=== PATIENT | male | born 1965 | race Caucasian/White ===

== ENCOUNTER → 2017-09-25 | Outpatient (CLI) | payer BC ==
[~2017-09-25] MED LIST: CHOLTAB3 PO; OMEG10007 PO
[2017-09-25 17:15] LABS: THYROID STIMULATING HORMONE < 0.005 uIu/ml (0.300-4.500)
== END | disposition home or self-care (01) ==
LOC: C.LABBC 12:59
PROVIDERS: ATTEND Internal Medicine Endocrinology, Diabetes & Metabolism
DX: E03.9 Hypothyroidism, unspecified (principal)

== ENCOUNTER → 2017-12-11 | Outpatient (CLI) | payer OTHER | END | disposition home or self-care (01) | LOC: C.LABBC 09:41 | PROVIDERS: ATTEND Internal Medicine Endocrinology, Diabetes & Metabolism | DX: E03.9 Hypothyroidism, unspecified (principal) ==

== ENCOUNTER → 2018-06-12 | Outpatient (CLI) | payer OTHER | END | disposition home or self-care (01) | LOC: C.LABBC 08:03 | PROVIDERS: ATTEND Internal Medicine Endocrinology, Diabetes & Metabolism | DX: E78.5 Hyperlipidemia, unspecified (principal); E03.9 Hypothyroidism, unspecified ==

== ENCOUNTER 2023-09-25 15:50 | Inpatient (IN) ==
[2023-09-25] MEDS ORDERED: LIDOCAINE/EPINEPH/TETRACAINE 1 EA SYR EXT ONE (16:19)
--- NOTE | 2023-09-25 16:20 | ED Triage Note ---
Date of Service September 25, 2023 History of Present Illness This patient was briefly evaluated while in triage. An abbreviated physical exam was performed. This patient is a 58-year-old Male who presents to the ED for evaluation of cheek 1 hour prior to arrival. The patient was using a table saw the wood that he was cutting kicked back, hitting him in the face. Patient reports mild right facial discomfort as well. Tetanus immunization is up-to-date. The patient rates his discomfort a 4 out of 10. Physical Exam CONSTITUTIONAL: Healthy and well nourished. Alert and oriented X 3. HEENT: Examination of the right cheek shows a vertically oriented 4 cm laceration with mild bleeding. Patient also has tenderness to palpation of the right maxillary region. No subconjunctival hemorrhage or epistaxis. NECK: Full active range of motion without discomfort. INTEGUMENTARY: No rash or other significant dermatologic conditions noted. HEMATOLOGIC: No ecchymosis or petechiae. PSYCHIATRIC: Positive affect. NEUROLOGIC: Facial sensations are intact. Initial orders for labs and / or imaging were placed and patient was placed in the waiting area until a bed is available. Please see further documentation for the full ED course.
[2023-09-25] MEDS ORDERED: LIDOCAINE/EPINEPH/TETRACAINE 1 EA SYR EXT STA (16:21)
--- NOTE | 2023-09-25 17:56 | CT Scan Report ---
CT facial bones wo con CLINICAL HISTORY: 58 years-old Male presenting with R facial ihnjury. The right-sided facial pain sta [facility] post trauma COMPARISON STUDY: 07/16/2009 TECHNIQUE: High-resolution CT scan of the facial bones is performed. Images are reviewed in the axia l, sagittal, and coronal planes. IV contrast was not administered for this examination. A dose lower ing technique was utilized adhering to the principles of ALARA. FINDINGS: The imaged intracranial structures demonstrate no acute abnormality. Unremarkable orbits. Moderate-si zed right cheek and infraorbital contusions with right cheek deep laceration extending through the an terior maxillary bony cortex. Multilevel degenerative changes of the cervical spine. The mandible baltazar ears intact. There is a right orbital floor fracture demonstrating a few millimeters of inferior disp lacement. No extraocular muscle entrapment. Acute nondisplaced fracture of the right zygomatic arch a nteriorly. Comminuted displaced and angulated right anterior and posterior maxillary wall fractures w ith a large amount of hemorrhage in the right maxillary sinus antrum. Additional comminuted mildly di splaced fractures of the right lateral orbital wall. Nasal bone is intact. Mild sigmoidal bowing and spurring of the nasal septum. The pterygoid plates are intact. Polypoid mucosal thickening of the rig ht sphenoid sinus. IMPRESSION: 1. Acute, comminuted, angulated and displaced right maxillary and orbital wall fractures with acute n ondisplaced right zygomatic arch fracture (zygomaticomaxillary complex fractures). 2. Right facial contusions with laceration. 3. Intact pterygoid bones. ACT 112: Negative or not required by law. The above report was generated using voice recognition software. It may contain grammatical, syntax o r spelling errors. Electronically signed by: Modesto Barnett M.D. 09/25/2023 5:54 PM
--- NOTE | 2023-09-25 18:13 | Emergency Department Note ---
History of Present Illness General Chief complaint: Laceration/Cut (Non-Suture) Stated complaint: LAC ON CHEEK, POSSIBLE BREAK Time Seen by Provider: 09/25/23 17:31 History of Present Illness Maximum Pain Intensity: 4 NAME: WEI PLUMMER AGE: 58 SEX: M : 1965 ARRIVES VIA: Walk-In INFORMANT: Patient ED PROVIDER(S): NICK Montiel, Dianna Neri MD The patient is a 58-year-old male who arrives to the emergency department for evaluation of a laceration to his right cheek. The patient was working on a table saw with a piece of wood when the wood kicked back and hit him in the face. The patient has a 2.5 cm laceration to upper central right cheek. Bleeding is currently controlled at this time. The patient was initially evaluated in triage with a CT scan ordered, CT scan shows orbital floor/maxillary/zygomatic arch fracture. After initial examination of the patient Dr. Solis was contacted for consult. Home Medications Medication Instructions Recorded Confirmed Type sertraline 100 mg tablet 100 mg PO DAILY 07/17/19 09/25/23 History atorvastatin 10 mg tablet 10 mg PO DAILY 09/25/23 09/25/23 History levothyroxine 100 mcg tablet 100 mcg PO DAILYBB 09/25/23 09/25/23 History multivitamin 1 tab PO DAILY 09/25/23 09/25/23 History Allergies Allergy/AdvReac Type Severity Reaction Status Date / Time No Known Allergies Allergy Verified 09/25/23 18:46 Past Med/Surg History Social History Smoking Status: Never smoker Do You Dip or Chew Tobacco: No; Hx Alcohol Use: Yes Hx Substance Use: No Preferred Language: Spanish Communication Ability: Effective Instrumentation Technologist Required: No Beliefs That Will Affect Care: None Current Living Situation: Spouse Feels Safe at Home: Yes Safety Concerns: Feels Safe At This Time Assistive Devices: Glasses Physical Exam Vital Signs Vital Signs - 24 hr 09/25/23 16:18 09/25/23 19:42 09/25/23 20:50 Temperature 36.7 C Temperature Source Temporal Artery Scan Pulse Rate 77 Pulse Rate [Right Finger] 67 110 H Pulse Rhythm [Right Finger] Regular Pulse Strength [Right Finger] Normal Respiratory Rate 18 17 20 Respiratory Effort / Characteristics Non-Labored Spontaneous Non-Labored Spontaneous Respiratory Depth Normal Normal Respiratory Pattern Regular Blood Pressure 162/96 H Blood Pressure [Right Arm] 146/86 H 139/98 Blood Pressure Mean 118 Blood Pressure Mean [Right Arm] 106 111 Blood Pressure Position Sitting Pulse Oximetry 100 96 95 Oxygen Delivery Method Room Air Room Air Room Air Sepsis Recent Fever Within 48 Hours No Sepsis New/Unexplained Change in Mental Status N/A Sepsis Action Taken by Nursing No Action Required 09/25/23 21:58 Temperature Temperature Source Pulse Rate Pulse Rate [Right Finger] 88 Pulse Rhythm [Right Finger] Pulse Strength [Right Finger] Respiratory Rate 20 Respiratory Effort / Characteristics Respiratory Depth Respiratory Pattern Blood Pressure Blood Pressure [Right Arm] 149/85 H Blood Pressure Mean Blood Pressure Mean [Right Arm] 106 Blood Pressure Position Pulse Oximetry 98 Oxygen Delivery Method Room Air Sepsis Recent Fever Within 48 Hours Sepsis New/Unexplained Change in Mental Status Sepsis Action Taken by Nursing General: Awake, alert and oriented. No acute distress. Well developed, hydrated and nourished. Appears stated age. Skin: There is a 2.5 cm vertical laceration to the right cheek, it is not through and through. Bleeding is currently controlled. There is no visible foreign body. Head: The head is normocephalic and atraumatic without tenderness, visible or palpable masses, depressions, or scarring. Ears: The external ear and ear canal are non-tender and without swelling. The canal is clear without discharge. The tympanic membrane is normal in appearance with normal landmarks and cone of light. Hearing is intact with good acuity to whispered voice. Nose: There is blood in the bilateral naris. The nasal septum is midline. Nares are patent bilaterally. Throat: Oral mucosa is pink and moist with good dentition. Tongue normal in appearance without lesions and with good symmetrical movement. No buccal nodules or lesions are noted. The pharynx is normal in appearance without tonsillar swelling or exudates. Neck: The neck is supple without adenopathy. Trachea is midline. Thyroid gland is normal without masses. Carotid pulse 2+ bilaterally without bruit. No JVD. Cardiac: The external chest is normal in appearance without lifts, heaves, or thrills. PMI is not visible and is palpated in the 5th intercostal space at the midclavicular line. Heart rate and rhythm are normal. No murmurs, gallops, or rubs are auscultated. S1 and S2 are heard and are of normal intensity. Respiratory: The chest wall is symmetric and without deformity. No signs of trauma. Chest wall is non-tender. No signs of respiratory distress. Lung sounds are clear in all lobes bilaterally without rales, rhonchi, or wheezes. Resonance is normal upon percussion of all lung doe. Extremities: Upper and lower extremities are atraumatic in appearance without tenderness or deformity. No swelling or erythema. Full range of motion is noted to all joints. Muscle strength is 5/5 bilaterally. Tendon function is normal. Capillary refill is less than 3 seconds in all extremities. Pulses palpable. Steady gait noted. Neurological: The patient is awake, alert and oriented to person, place, and time with normal speech. Motor function is normal with muscle strength 5/5 bilaterally to upper and lower extremities. Sensation is intact bilaterally. Reflexes 2+ bilaterally. Cranial nerves are intact. Cerebellar function is intact. Memory is normal and thought process is intact. No gait abnormalities are appreciated. Psychiatric: Appropriate mood and affect. Good judgement and insight. No visual or auditory hallucinations. No suicidal or homicidal ideation. Procedures Laceration Laceration 1: Site: face Size (cm): 2.5 Description: linear and clean Depth: simple, single layer Local Anesthetic: lidocaine 1% Amount of anesthesia used (mL): 5 Pre-repair: wound explored, irrigated extensively, extensive debridement and wound margins revised Skin layer closed with: nylon Size (cm): 6-0 Number of sutures: 4 Technique: simple, interrupted Course Administered Medications Ampicillin Sodium/Sulbactam Sodium 3,000 mg/ Sodium Chloride 100 mls @ 100 mls/hr IV Q6H [facility] Stop: 10/06/23 01:59 Last Admin: 09/26/23 08:56 Dose: 100 mls/hr Documented By: Infusion: 09/26/23 02:35 Dose: Infused Documented By: Admin: 09/26/23 01:34 Dose: 100 mls/hr Documented By: TREVIN Acetaminophen (Ofirmev) 1,000 mg in 100 mls @ 400 mls/hr IV Q8H PRN PRN Reason: pain(1-4) or fever Stop: 09/28/23 21:19 Last Infusion: 09/26/23 08:56 Dose: Infused Documented By: Admin: 09/26/23 08:19 Dose: 400 mls/hr Documented By: BRADFORD Morphine Sulfate (Morphine Sulfate 2 Mg/Ml Carp) 2 mg IV Q3H PRN PRN Reason: Pain(5+) Stop: 10/09/23 21:19 Last Admin: 09/25/23 23:20 Dose: 2 mg Documented By: TREVIN Discontinued Medications Ampicillin Sodium/Sulbactam Sodium 3,000 mg/ Sodium Chloride 100 mls @ 200 mls/hr IV NOW STA Stop: 09/25/23 19:02 Last Infusion: 09/25/23 20:32 Dose: Infused Documented By: Admin: 09/25/23 19:53 Dose: 200 mls/hr Documented By: ELI Lactated Ringer's (Lr) 1,000 mls @ 100 mls/hr IV .Q10H ANGI Stop: 09/26/23 07:29 Last Infusion: 09/26/23 08:17 Dose: Infused Documented By: Admin: 09/25/23 21:48 Dose: 100 mls/hr Documented By: BRIA Lidocaine (Lidocaine/Epineph/Tetracaine 1 Ea Syr) Confirm Administered Dose 1 each EXT .STK-MED ONE Stop: 09/25/23 16:20 Last Admin: 09/25/23 16:22 Dose: Not Given Documented By: ALDAIR Lidocaine (Lidocaine/Epineph/Tetracaine 1 Ea Syr) 1 each EXT NOW STA Stop: 09/25/23 16:22 Last Admin: 09/25/23 16:22 Dose: 1 each Documented By: ALDAIR Lidocaine HCl (Xylocaine 1%/Sod Bicarb 20 Ml Vial) 20 ml INFIL NOW ONE Stop: 09/25/23 18:34 Last Admin: 09/25/23 20:05 Dose: 20 ml Documented By: BRIA Morphine Sulfate (Morphine Sulfate 4 Mg/Ml 1 Ml Carp\Vial) 4 mg IV NOW STA Stop: 09/25/23 18:55 Last Admin: 09/25/23 19:50 Dose: 4 mg Documented By: ELI Ondansetron HCl (Ondansetron Inj 2 Mg/Ml 2 Ml Vial) 4 mg IV NOW STA Stop: 09/25/23 18:55 Last Admin: 09/25/23 19:50 Dose: 4 mg Documented By: AMS Medical Decision Making Differential Diagnosis Foreign body, fracture, infection, soft tissue injury, tendon injury, vascular compromise, compartment syndrome, as well as other pathologies. Medical Records Attestation: I reviewed the patient's medical records. Home Medications Current Medication List: was personally reviewed by me Laboratory Data Attestation: I reviewed the patient's lab results. 09/26/23 07:02 09/26/23 07:02 Lab Results 09/25/23 Range/Units 19:20 WBC 10.50 (4.8-10.8) K/ul RBC 5.00 (4.70-6.10) M/uL Hgb 15.0 (14.0-18.0) g/dl Hct 42.9 (42.0-52.0) % MCV 85.8 (80.0-100.0) fL MCH 30.0 (25.0-34.0) pg MCHC 35.0 (32.0-36.0) g/dL RDW Std Deviation 38.9 (36.4-46.3) fL RDW Coeff of Deepak 12.5 (11.5-14.5) % Plt Count 173 (130-400) K/uL MPV 10.0 (9.4-12.4) fL Immature Gran % (Auto) 0.4 % Neut % (Auto) 84.4 % Lymph % (Auto) 9.7 % [place] % (Auto) 5.0 % Eos % (Auto) 0.2 % Baso % (Auto) 0.3 % Neut # (Auto) 8.86 H (1.40-6.50) K/uL Lymph # (Auto) 1.02 L (1.20-3.40) K/uL [place] # (Auto) 0.53 (0.11-0.59) K/uL Eos # (Auto) 0.02 (0.00-0.50) K/uL Baso # (Auto) 0.03 (0.00-0.20) K/uL Immature Gran # (Auto) 0.04 (0.01-0.20) K/uL Sodium 140 (136-145) mmol/L Potassium 3.8 (3.5-5.1) mmol/L Chloride 106 (98-107) mmol/L Carbon Dioxide 26 (21-32) mmol/L Anion Gap 8 (3-11) BUN 25 H (6-23) mg/dl Creatinine 1.10 (0.6-1.4) mg/dl Est Cr Clr Drug Dosing 79.6 ml/min Est GFR ( Amer) 86.5 ml/min Est GFR (Non-Af Amer) 74.6 ml/min BUN/Creatinine Ratio 22.7 H (10-20) Glucose 121 H (70-99(Fasting)) mg/dl Calcium 9.6 (8.6-10.3) mg/dl Total Bilirubin 0.4 (0.2-1.0) mg/dl AST 28 (13-39) U/L ALT 22 (7-52) U/L Alkaline Phosphatase 57 (34-104) U/L Total Protein 6.8 (6.0-8.3) gm/dl Albumin 4.5 (3.4-5.0) gm/dl Globulin 2.3 L (2.5-4.0) gm/dl Albumin/Globulin Ratio 2.0 (0.9-2) Imaging Data Radiologist's Impression: Chest X-Ray 09/25/23 18:44 XR chest 1V portable HISTORY: 58 years-old Male preoperative preoperative exam. COMPARISON: None TECHNIQUE: AP view of the chest FINDINGS: Cardiomediastinal and hilar silhouettes are within normal limits. No pneumothorax, pleural effusion or airspace consolidation. Bones appear grossly intact with degenerative changes of the shoulders and spine. IMPRESSION: No acute process. ACT 112: Negative or not required by law. The above report was generated using voice recognition software. It may contain grammatical, syntax or spelling errors. Electronically signed by: Modesto Barnett M.D. 09/26/2023 7:28 AM Blood Pressure Blood Pressure Findings: Elevated blood pressure Blood Pressure Disposition: elevated BP felt to be situational Head Trauma GCS Score: 15 MDM Narrative The patient is a 58-year-old male who arrives to the emergency department for the above-stated complaint. Upon assessment the patient has a 2.5 cm vertical laceration to the anterior right cheek. The patient reports he was using a table saw with a piece of wood and the wood kicked back and hit him in the face. The patient is reporting severe pain and tenderness in his cheek with bleeding from his nares. He on the patient's cheek does not extend into the internal portion of the mouth. Dentition is intact. Imaging shows a zygomatic arch fracture, orbital wall fracture, and maxillary fracture. Dr. Solis was contacted for consult, he states based on the patient's condition he will require surgical intervention. The patient was provided the option to be admitted for pain control with surgery tomorrow morning, or to go home and follow-up with Dr. Solis tomorrow morning in his office. The patient and his opted for admission with surgical intervention tomorrow. Dr. Solis was informed and agreed with the plan. The admitting team was contacted who requested additional imaging of the patient's head. CT imaging of the head was negative with the exception of the previously known injury. The patient was admitted to [facility] at this time. The patient's laceration was irrigated extensively, no foreign body was noted in the wound. Dr. Solis's recommendation, the wound was sutured to control bleeding, without correction of deep structures. Dr. Solis's plan was to use this laceration as a vertical opening for his procedure. See procedure note. Impression & Plan Maxillary fracture, right side, initial encounter for closed fracture, Orbital wall fracture, Zygomatic fracture, right side, initial encounter for open fracture, Complex laceration of face Discharge Plan Visit Data Chief Complaint: Laceration/Cut (Non-Suture) Stated Complaint: LAC ON CHEEK, POSSIBLE BREAK ED Provider: Dianna Neri ED Midlevel Provider: Deepa Ingram Discharge Problem: Maxillary fracture, right side, initial encounter for closed fracture, Orbital wall fracture, Zygomatic fracture, right side, initial encounter for open fracture, Complex laceration of face Patient Disposition: Admitted As Inpatient Discharge Instructions Interventions: ED Discharge Assessment Last Done: 09/25/23 22:44 Discharge Problem: Complex laceration of face Qualifiers: Encounter type: initial encounter Qualified Code(s): S01.91XA - Laceration without foreign body of unspecified part of head, initial encounter
[2023-09-25] MEDS ORDERED: XYLOCAINE 1%/SOD BICARB 20 ML VIAL INFIL ONE (18:33)
[2023-09-25] MEDS ORDERED: AMPICILLIN/SULBACTAM SOD 3,000 MG in SODIUM CHLOR 0.9% MINI-B 100 ML IV STA (18:33)
[2023-09-25] MEDS ORDERED: MoRPHine SULFATE 4 MG/ML 1 ML CARP\\VIAL IV STA (18:54)
[2023-09-25] MEDS ORDERED: ONDANSETRON INJ 2 MG/ML 2 ML VIAL IV STA (18:54)
[2023-09-25 19:40] LABS: Basophils # (auto) 0.03 K/uL (0.00-0.20); Basophils % (auto) 0.3 %; Eosinophils # (auto) 0.02 K/uL (0.00-0.50); Eosinophils % (auto) 0.2 %; Hematocrit (blood only) 42.9 % (42.0-52.0); Immature Granulocytes # (auto) 0.04 K/uL (0.01-0.20); Immature Granulocytes % (auto) 0.4 %; Lymphocytes # (auto) 1.02 K/uL (1.20-3.40); Lymphocytes % (auto) 9.7 %; Mean Corpuscular Volume 85.8 fL (80.0-100.0); Monocytes # (auto) 0.53 K/uL (0.11-0.59); Neutrophils # (auto) 8.86 K/uL (1.40-6.50); Neutrophils % (auto) 84.4 %; Platelet Count 173 K/uL (130-400); RDW Coefficient of Variation 12.5 % (11.5-14.5); RDW Standard Deviation 38.9 fL (36.4-46.3)
[2023-09-25 19:52] LABS: Albumin Level 4.5 gm/dl (3.4-5.0); BUN Creatinine Ratio 22.7 (10-20); Bilirubin,Total 0.4 mg/dl (0.2-1.0); Calcium 9.6 mg/dl (8.6-10.3); Creatinine Clr Calc Pharmacy 79.6 ml/min; Est GFR (African American) 86.5 ml/min; Est GFR (Non-African American) 74.6 ml/min; Globulin 2.3 gm/dl (2.5-4.0); Potassium 3.8 mmol/L (3.5-5.1); Total Protein 6.8 gm/dl (6.0-8.3)
--- NOTE | 2023-09-25 20:04 | CT Scan Report ---
Exam(s): CT HEAD Without Contrast EXAM: CT Head Without Intravenous Contrast CLINICAL HISTORY: Reason for exam: traumatic facial injury. TECHNIQUE: Axial computed tomography images of the head/brain without intravenous contrast. CTDI is 35.99 mGy and DLP is 625.8 mGy-cm. Automated exposure control was utilized for the study. A dose lowering technique was utilized adhering to the principles of ALARA. COMPARISON: No relevant prior studies available. FINDINGS: No acute intracranial hemorrhage. No midline shift or mass effect. The territorial mclaughlin-white matter differentiation is maintained throughout. Age-related cerebral volume loss. Periventricular and subcortical white matter hypoattenuation, consistent with chronic microangiopathy. The visualized orbits appear grossly unremarkable. The calvarium is intact. RIGHT maxillary sinus fracture, correlate with maxillofacial CT scan. The visualized paranasal sinuses and mastoid air cells are grossly clear. IMPRESSION: No acute intracranial hemorrhage, midline shift, or mass effect. RIGHT maxillary sinus fracture, correlate with maxillofacial CT scan. Electronically signed by: Silviano Mercado MD 09/25/23 20:03 PM
--- NOTE | 2023-09-25 21:10 | History & Physical Report ---
Date of Service September 25, 2023 Assessment & Plan (1) Maxillary fracture, right side, initial encounter for closed fracture: Plan: -Admit to med/surge -Currently stable with pain controlled -Experienced his injury earlier today while cutting a piece of wood -Patient is currently without neurologic symptoms, airway swellinrig/stridor, or acute bleeding -Facial CT shows the acute fractures of the right maxillary and right orbital wall -CT of the head negative for acute trauma -Dr. Solis will take the patient to the OR tomorrow for repair -S/P one dose of Unasyn in the ED, will continue with Unasyn for now -Will obtain MRSA swab, if positive will escalate abx to cover -Will allow him a clear liquid diet until midnight then NPO -Pain control with tylenol and morphine -BL MIRNA's for DVT PPX -AM CBC, CMP, Mag, PT/INR (2) Orbital wall fracture: Plan: -See maxillary fracture -No changes in vision or eye trauma (3) Hypothyroidism: Plan: -Continue levothyroxine (4) Dyslipidemia: Plan: -Continue statin Plan The patient was discussed with Dr. Neri at the time of the exam History of Present Illness Chief Complaint: Facial trauma Primary Care Provider: Hamilton Bray is a 58 year old male with a PMH significant for hypothyroidism, hyperlipidemia, and anxiety who presented to the [facility] ED after sustaining a laceration to the face while using a table saw earlier today. Per the ED, the patient was cutting a piece of wood on the table saw when the piece of wood was kiced back hitting him on the right cheek. He remained stable while in the ED. CT of the face wo con was read as 1. Acute, comminuted, angulated and displaced right maxillary and orbital wall fractures with acute nondisplaced right zygomatic arch fracture (zygomaticomaxillary complex fractures). 2. Right facial contusions with laceration. 3. Intact pterygoid bones.. CT of the head wo con was read as No acute intracranial hemorrhage, midline shift, or mass effect.". Labs including CBC and CMP were unremarkable. The ED staff spoke with Dr. Solis of ENT who was comfortable with the patient staying at our facility. He plans to take the patient to the OR tomorrow for surgical repair. Prior to admission the patient was given a dose of Unasyn, 4 mg IV morphine, 4 mg IV Zofran, and his wound was sutured. At the time of the exam the patient was sitting in bed in no acute distress with his sitting bedside. He states that he was cutting a piece of wood on his table saw when it was kicked backwards by the blade. The wood hit his right cheek. He was wearing safety glasses, which were broken during the event, but his eyes were spared. He states that he immediately had severe pain and bleeding at the injury site. Currently his pain is controlled. He denies loss of consciousness during the accident, paresthesia, changes in vising, hearing, trismus, airway/mouth swelling, difficulty swallowing, SOB, chest pain, abd pain, vomiting, dysuria, hematuria, melena, and other recent trauma. He uses nicotine but not tobacco and has not had alcohol since . Please refer to Dr. Neri's attestation for any changes to the treatment plan Allergies Allergy/AdvReac Type Severity Reaction Status Date / Time No Known Allergies Allergy Verified 09/25/23 18:46 Home Medications Medication Instructions Recorded Confirmed Type sertraline 100 mg tablet 100 mg PO DAILY 07/17/19 09/25/23 History atorvastatin 10 mg tablet 10 mg PO DAILY 09/25/23 09/25/23 History levothyroxine 100 mcg tablet 100 mcg PO DAILYBB 09/25/23 09/25/23 History multivitamin 1 tab PO DAILY 09/25/23 09/25/23 History Past Med/Surg History Social History Smoking Status: Never smoker Do You Dip or Chew Tobacco: No; Hx Alcohol Use: Yes Hx Substance Use: No Preferred Language: Korean Communication Ability: Effective Shellfish Grower Required: No Beliefs That Will Affect Care: None Current Living Situation: Spouse Feels Safe at Home: Yes Safety Concerns: Feels Safe At This Time Assistive Devices: Glasses Physical Exam Physical Exam: Physical Exam: General: In no acute distress, stated age, well-nourished, good hygiene HEENT: Patient with recent laceration sutured and without current bleeding, swelling of the right face without extension to the eye or neck, patient able to open mouth without difficulty, no swelling or drooling on inspection of the oropharynx, No scleral icterus, pupils around round, symmetrical, and reactive to light, moist mucus membranes, trachea midline, no thyromegaly Chest/Pulm: No respiratory distress, symmetrical chest expansion, clear breath sounds throughout Cardiac: RRR, no murmurs noted Abdomen: Negative for ascites and bruising, normoactive bowel sounds, soft, non-tender to palpation throughout Musculoskeletal: No other acute trauma on exam Extremities: Radial, dorsalis pedis, and posterior tibial pulses are intact and symmetrical, no edema noted in the BL LE's Skin: Warm, dry, no rashes , lesions, or scars noted Neuro: Alert and oriented to person, place, month, year, and president, no focal defects, CN II-XII tested and intact, finger to nose test negative, no tremors noted Psych: No acute distress, calm and cooperative during the exam Results & Data Results & Data Vital Signs (Past 12 Hours) Vital Signs Temp Pulse Pulse Resp BP BP Pulse Ox 09/25/23 20:50 110 H 20 139/98 95 09/25/23 19:42 67 17 146/86 H 96 09/25/23 16:18 36.7 C 77 18 162/96 H 100 O2 Del Method 09/25/23 20:50 Room Air 09/25/23 19:42 Room Air 09/25/23 16:18 Room Air Laboratory Results Abnormal lab results 09/25/23 Range/Units 19:20 Neut # (Auto) 8.86 H (1.40-6.50) K/uL Lymph # (Auto) 1.02 L (1.20-3.40) K/uL BUN 25 H (6-23) mg/dl BUN/Creatinine Ratio 22.7 H (10-20) Glucose 121 H (70-99(Fasting)) mg/dl Globulin 2.3 L (2.5-4.0) gm/dl Diagnostic Findings Face CT 09/25/23 16:21 CT facial bones wo con CLINICAL HISTORY: 58 years-old Male presenting with R facial ihnjury. The right- sided facial pain status post trauma COMPARISON STUDY: 07/16/2009 TECHNIQUE: High-resolution CT scan of the facial bones is performed. Images are reviewed in the axial, sagittal, and coronal planes. IV contrast was not administered for this examination. A dose lowering technique was utilized adhering to the principles of ALARA. FINDINGS: The imaged intracranial structures demonstrate no acute abnormality. Unremarkable orbits. Moderate-sized right cheek and infraorbital contusions with right cheek deep laceration extending through the anterior maxillary bony cortex. Multilevel degenerative changes of the cervical spine. The mandible appears intact. There is a right orbital floor fracture demonstrating a few millimeters of inferior displacement. No extraocular muscle entrapment. Acute nondisplaced fracture of the right zygomatic arch anteriorly. Comminuted displaced and angulated right anterior and posterior maxillary wall fractures with a large amount of hemorrhage in the right maxillary sinus antrum. Additional comminuted mildly displaced fractures of the right lateral orbital wall. Nasal bone is intact. Mild sigmoidal bowing and spurring of the nasal septum. The pterygoid plates are intact. Polypoid mucosal thickening of the right sphenoid sinus. IMPRESSION: 1. Acute, comminuted, angulated and displaced right maxillary and orbital wall fractures with acute nondisplaced right zygomatic arch fracture (zygomaticomaxillary complex fractures). 2. Right facial contusions with laceration. 3. Intact pterygoid bones. ACT 112: Negative or not required by law. The above report was generated using voice recognition software. It may contain grammatical, syntax or spelling errors. Electronically signed by: Modesto Barnett M.D. 09/25/2023 5:[address] 09/25/23 18:51 Exam(s): CT HEAD Without Contrast EXAM: CT Head Without Intravenous Contrast CLINICAL HISTORY: Reason for exam: traumatic facial injury. TECHNIQUE: Axial computed tomography images of the head/brain without intravenous contrast. CTDI is 35.99 mGy and DLP is 625.8 mGy-cm. Automated exposure control was utilized for the study. A dose lowering technique was utilized adhering to the principles of ALARA. COMPARISON: No relevant prior studies available. FINDINGS: No acute intracranial hemorrhage. No midline shift or mass effect. The territorial mclaughlin-white matter differentiation is maintained throughout. Age-related cerebral volume loss. Periventricular and subcortical white matter hypoattenuation, consistent with chronic microangiopathy. The visualized orbits appear grossly unremarkable. The calvarium is intact. RIGHT maxillary sinus fracture, correlate with maxillofacial CT scan. The visualized paranasal sinuses and mastoid air cells are grossly clear. IMPRESSION: No acute intracranial hemorrhage, midline shift, or mass effect. RIGHT maxillary sinus fracture, correlate with maxillofacial CT scan. Electronically signed by: Silviano Mercado MD 09/25/23 20:03 PM ECG Additional Comments: Normal sinus rhythm Cannot rule out Anterior infarct , age undetermined Abnormal ECG When compared with ECG of 03-MAR-2014 10:28, No significant change was found Code Status & VTE Plan Code Status Full code VTE Prophylaxis Plan VTE Prophylaxis will be ordered: Yes Supervising Physician Co-Signing Physician Notes Patient seen and examined, chart reviewed, case discussed with JOSTIN Montgomery and I agree with the assessment and plan as above PG Care Time/CCT Total # of Minutes Spent Total Time Spent with Patient: Total time spent is greater than 50% in coordination of care (as documented) at patient's floor/unit and/or counseling patient: Coding [place] [address] INT INP/OBS CARE 2/55MIN Patient Type Established Medical Decision Making Moderate Complexity Diagnoses Maxillary fracture, right side, initial encounter for closed fracture S02.40CA Orbital wall fracture S02.85XA Hypothyroidism E03.9 Dyslipidemia E78.5
[2023-09-25] MEDS ORDERED: ONDANSETRON INJ 2 MG/ML 2 ML VIAL IV PRN (21:28)
[2023-09-25] MEDS ORDERED: LACTATED RINGER'S 1,000 ML IV SCH (21:30)
--- NOTE | 2023-09-25 21:35 | Oral/Maxillofacial Consult ---
Date of Consultation September 25, 2023 Assessment & Plan (1) Zygomatic fracture, right side, initial encounter for open fracture: (2) Complex laceration of face: History of Present Illness History of Present Illness I was asked to evaluate this 58-year-old male who arrived to the emergency department for evaluation of a laceration to his right cheek. The patient was working on a table saw with a piece of wood when the wood kicked back and hit him in the face. There is a 2.5 deep laceration of the right check. I had a 3-D rendering of the CT made to allow me to review the fraction in 3-D. As expected the right ZMOC has impacted into the lateral sinus causing comminution of the lateral sinus villagran. It appears that the right ZMOC pivoted from the ZF and arch to cause the buttress to impact into the sinus. This is causing a contour defect in the right ZMOC area requiring an opened reduction with plate fixation. I may be able to use the cheek laceration to help with the fixation of the complex fracture. I saw Mr. Sims Sunday AM to review the surgery, I also had his on the phone as well, I preformed a clinical exam, signed consents and will set him up for the opened reduction and laceration repair later in the afternoon. Treatment Plan: Plan for opened reduction and laceration repair right ZMOC fracture Set up with general anesthesia in hospital due to complexity of the procedure I reviewed the treatment plan and consent with the patient (and his over the phone) Understanding was expressed. Time was given for questions regarding the surgery, risks and post op care. Discussed alternative to treatment--procedure as planned, Do not do surgery Risks discussed: Bleeding,Pain,swelling,infection, delayed healing, nerve injury to face which could be permanent (rare). Sinus problems like fistula or infection. Need to leave a small bone fragment in sinus, sinus congestion. Facial couture asymmetry (rare) Home care reviewed: tooth brushing, rinsing, follow up care with Dr Solis. diet=[id number] dental. Discussed activity level, driving/work while on Rx pain Meds. ER notes: The patient is a 58-year-old male who arrives to the emergency department for evaluation of a laceration to his right cheek. The patient was working on a table saw with a piece of wood when the wood kicked back and hit him in the face. The patient has a 2.5 cm laceration to upper central right cheek. Bleeding is currently controlled at this time. The patient was initially evaluated in triage with a CT scan ordered, CT scan shows orbital floor/maxillary/zygomatic arch fracture. After initial examination of the patient Dr. Solis was contacted for consult. Face CT 09/25/23 16:21 CT facial bones wo con CLINICAL HISTORY: 58 years-old Male presenting with R facial injury. The right- sided facial pain status post trauma FINDINGS: The imaged intracranial structures demonstrate no acute abnormality. Unremarkable orbits. Moderate-sized right cheek and infraorbital contusions with right cheek deep laceration extending through the anterior maxillary bony cortex. Multilevel degenerative changes of the cervical spine. The mandible appears intact. There is a right orbital floor fracture demonstrating a few millimeters of inferior displacement. No extraocular muscle entrapment. Acute nondisplaced fracture of the right zygomatic arch anteriorly. Comminuted displaced and angulated right anterior and posterior maxillary wall fractures with a large amount of hemorrhage in the right maxillary sinus antrum. Additional comminuted mildly displaced fractures of the right lateral orbital wall. Nasal bone is intact. Mild sigmoidal bowing and spurring of the nasal septum. The pterygoid plates are intact. Polypoid mucosal thickening of the right sphenoid sinus. IMPRESSION: 1. Acute, comminuted, angulated and displaced right maxillary and orbital wall fractures with acute nondisplaced right zygomatic arch fracture (zygomaticomaxillary complex fractures). 2. Right facial contusions with laceration. 3. Intact pterygoid bones. Prescriptions sertraline 100 mg tablet 100 mg PO DAILY multivitamin Tablet 1 tab PO DAILY atorvastatin 10 mg tablet 10 mg PO DAILY levothyroxine 100 mcg tablet 100 mcg PO DAILYBB Rx Instructions: 100 mcg PO TAKE ON AN EMPTY STOMACH WITH A FULL GLASS OF WATER, WAIT 30 MINUTES TO EAT, DRINK, OR TAKE Allergies Allergy/AdvReac Type Severity Reaction Status Date / Time No Known Allergies Allergy Verified 09/25/23 18:46 Home Medications Medication Instructions Recorded Confirmed Type sertraline 100 mg tablet 100 mg PO DAILY 07/17/19 09/25/23 History atorvastatin 10 mg tablet 10 mg PO DAILY 09/25/23 09/25/23 History levothyroxine 100 mcg tablet 100 mcg PO DAILYBB 09/25/23 09/25/23 History multivitamin 1 tab PO DAILY 09/25/23 09/25/23 History Patient History Social History Smoking Status: Never smoker Do You Dip or Chew Tobacco: No; Hx Alcohol Use: Yes Hx Substance Use: No Preferred Language: Australian Communication Ability: Effective Crop Pest Control Specialist Required: No Beliefs That Will Affect Care: None Current Living Situation: Spouse Feels Safe at Home: Yes Safety Concerns: Feels Safe At This Time Assistive Devices: Glasses Physical Exam Physical Exam: Physical Exam Constitutional WD/WN, vitals as above Eyes PERRL, left conjunctivae normal, anicteric sclerae, right eye somewhat red, EOM all WNL, no vision issues Mouth no oral issues, noted paraesthesia upper right gum tissue secondary to nerve injury as expected Neck trachea midline, no thyromegaly Thyroid: normal thyroid Respiratory normal respiratory effort, lungs clear to auscultation Auscultation: lungs clear to auscultation bilaterally Cardiovascular RRR, no murmur, no edema Rate/Rhythm: regular rate and regular rhythm Gastrointestinal (Abdomen) normal bowel sounds, soft, nontender, no hepatosplenomegaly Musculoskeletal no cyanosis or clubbing, extremities motor strength 5/5 Skin swollen right cheek, deep laceration right cheek, depressing and step deformity right orbital rim Neurologic PERRL, EOMI, accommodation nl, no face palsy, no dysarthria Cranial Nerves: sense of smell intact, PERRL, normal accommodation, EOM intact bilaterally, normal facial strength, tongue midline, normal gag reflex, normal hearing, able to rotate head bilaterally, able to elevate shoulders bilaterally, no nystagmus and symmetric palate elevation Slight numbness from the infraorbital nerve right side Psychiatric A+Ox3, euthymic affect Orientation: cooperative Lymphatic no cervical or axillary lymphadenopathy Results & Data Vital Signs (Past 12 Hours) Vital Signs Temp Pulse Pulse Resp BP BP Pulse Ox 09/25/23 20:50 110 H 20 139/98 95 09/25/23 19:42 67 17 146/86 H 96 09/25/23 16:18 36.7 C 77 18 162/96 H 100 O2 Del Method 09/25/23 20:50 Room Air 09/25/23 19:42 Room Air 09/25/23 16:18 Room Air PG Care Time/CCT Total # of Minutes Spent Total Time Spent with Patient: Total time spent is greater than 50% in coordination of care (as documented) at patient's floor/unit and/or counseling patient: [place] [address] IN/OBS CONSULT LVL 3,45M Patient Type New History Problem Focused Exam Problem Focused Medical Decision Making Straight Forward Diagnoses Zygomatic fracture, right side, initial encounter for open fracture S02.40EB Complex laceration of face, initial encounter S01.91XA Encounter type: initial encounter CPT Codes COMPLEX REPAIR FH/CHK/CHN/M/NCK/AX/GEN/HAND/FEET 2.6-7.5 CM - [id number] ([id number]) OPEN TX COMPLX MALAR FX - [id number] ([id number]) (2) Complex laceration of face Encounter type: initial encounter Qualified Code(s): S01.91XA - Laceration without foreign body of unspecified part of head, initial encounter
[2023-09-25] MEDS: MoRPHine SULFATE 2 MG/ML CARP IV PRN (23:20)
[2023-09-26] MEDS: AMPICILLIN/SULBACTAM SOD 3,000 MG in SODIUM CHLOR 0.9% MINI-B 100 ML IV SCH ×3 (01:34→20:20)
--- OUTSIDE RECORDS SUMMARY | 2023-09-26 01:40 | External Medical Summary | Continuity of Care Document ---
Author Name Unknown Organization [facility] [address] [facility] [address] [id number] Care Team Providers Care Load Tester Name Role Phone Hamilton Bob Primary Care Physician [phone] Encounter [facility] [id number] Date(s): 06/21/23 - 06/21/23 [facility] 0 [address] [facility] 207 [facility] Site [address] [facility] 207 [place], [place] [address]Hzekq [phone] Encounter Diagnosis Hypothyroidism(Discharge Diagnosis) - 06/21/23 Hyperlipemia(Discharge Diagnosis) - 06/21/23 Seasonal affective disorder(Discharge Diagnosis) - 06/21/23 Discharge Disposition: Home or Self Care Attending Physician: MD Alessandra, Mayda Kohler Allergies, Adverse Reactions, Alerts Substance Reaction Severity Status Wellbutrin Insomnia. Active Astelin Insomnia. Active Lexapro Insomnia. Active Richard's wort Insomnia. Active Assessment and Plan Extracted from: Title:Office Visit Note Author:DO Gomez Pa ige M Date:06/21/23 1.Hypothyroidism Chronic condition, stable Goal:Resolution Data:unique tests ordered: _TSH, Free T4 Plan: Will recheck blood work as above, adjust levothyroxine dosage as needed. 2.Hyperlipemia Chronic condition, stable Goal:Resolution Data:unique tests ordered: _Lipid profile Plan: Will recheck fasting lipid panel. Adjust statin as indicated. 3.Seasonal affective disorder Chronic condition, stable Goal:Resolution Data:PHQ-2 of 0 Plan: Continue current dose of Sertraline Immunizations Given and Recorded Vaccine Date Status Refusal Reason hepatitis B adult vaccine 05/25/22 Given SARS-CoV-2 (COVID-19) mRNA BNT-162b2 vax 09/05/21 Recorded influenza virus vaccine, inactivated 08/20/21 Give n influenza virus vaccine, inactivated 08/18/20 Give n influenza virus vaccine, inactivated 07/24/17 Give n influenza virus vaccine, inactivated 07/21/14 Give n influenza virus vaccine, inactivated 07/15/13 Give n influenza virus vaccine, inactivated 07/23/12 Give n zoster vaccine, inactivated 05/23/21 Given zoster vaccine, inactivated 11/22/20 Given tetanus/diphtheria/pertuss, acel (Tdap) 11/22/20 G iven tetanus/diphtheria/pertuss, acel (Tdap) 10/05/05 R ecorded influenza virus vaccine, H1N1 07/29/11 Recorded Medications atorvastatin 10 mg oral tablet Start: 12/10/22 17:55:00 EST, See Instructions, Disp# 30 tab, Refills: 11, TAKE 1 TABLET BY MOUTH EVERY DAY, Pharmacy: [email or web address] Start Date: 12/10/22 Status: Ordered famotidine 20 mg oral tablet Start: 12/07/22 13:57:00 EST, See Instructions, Disp# 90 tab, Refills: 2, TAKE 1 TABLET BY MOUTH EVERY DAY, Pharmacy: [id number] Start Date: 12/07/22 Status: Ordered levothyroxine 100 mcg (0.1 mg) oral tablet Start: 06/11/23 14:29:00 EDT, See Instructions, Disp# 30 tab, Refills: 0, TAKE 1 TABLET BY MOUTH EVERY DAY, Pharmacy: [facility] Start Date: 06/11/23 Status: Ordered sertraline 100 mg oral tablet Start: 11/08/22 17:23:00 EST, See Instructions, Disp# 135 tab, Refills: 3, TAKE 1 AND 1/2 TABLETS BY MOUTH DAILY, Pharmacy: [id number] Start Date: 11/08/22 Status: Ordered Vitamin D3 2000 intl units oral capsule Start: 04/11/11 10:20:00, 1 cap, PO, Daily, cap Start Date: 04/11/11 Status: Ordered Mental Status 06/21/23 Barriers to Learning one year None evide nt Mandatory Health Literacy Documentation Yes Health Literacy Communication Barriers N ever Primary Language Latvian Problem List Condition Confirmation Course Effective Dates Status H ealth Status Informant Daytime sleepiness Confirmed Active Decreased hearing 1 Confirmed Active FH: CAD (coronary artery disease) Confirmed Active GERD Confirmed Active Hyperlipemia Confirmed Active Hypothyroidism Confirmed Active Ligament of wrist or hand 2 Confirmed Active Moderate obstructive sleep apnea Confirmed Active Health care maintenance Confirmed Active Annual physical exam Confirmed Active Raynaud's syndrome 3 Confirmed Active Rhinitis Confirmed Active Seasonal affective disorder Confirmed Active Septoplasty unspecified Confirmed Active Snoring Confirmed Active 1right ear - aid of no help 2repair right wrist 02/27/2008 3questionable 06/04 Diagnosis Diagnosis Type Effective Dates Health Status Clinical Service Informant Hypothyroidism Discharge Diagnosis 06/21/23 Non-Specified Hyperlipemia Discharge Diagnosis 06/21/23 Seasonal affective disorder Discharge Diagnosis 06/21/23 Procedures Procedure Date Related Diagnosis Body Site Status Coronary artery calcium score 1 06/06/22 Completed Upper GI endoscopy 2 05/09/17 Comp leted Colonoscopy 3, 4 04/20/17 Complete d nevus excision - nose - benign 10/29/07 Completed Radio-carpal dislocation--Davey rgical repair 10/29/07 Completed sinus sugery 08/29/02 Completed ECHO-- WNL per pt 5 10/29/01 Compl eted septoplasty 08/29/92 Completed tonsillectomy adenoidectomy 10/29/71 Completed 1Your CORONARY CALCIUM SCORE was = 0 Left Main =0 LAD = 0 LCx = 0 RCA =0 This is how it is interpreted: Score Plaque [place] Interpretation 0 None Very low risk of Coronary Artery Disease (CAD) * 1-10 Minimal Unlikely to have CAD 11-100 Mild Mild or minimal CAD 101-400 Moderate Moderate non-obstructive CAD very likely > 400 Extensive High likelihood of at least one significant CAD lesion with > 50% stenosis So with this result... your risk is as indicated above* We can discuss in detail at the next visit. Please let me know if you have questions. 2Normal esophagus Normal stomach Normal examined duodenum No specimens collected. 3repeat 5 years. tubular adenoma. 4One 3mm polyp in the sigmoid colon. await pathology 5WNL Vital Signs Most recent to oldest [Reference Range]: 1 Height 170 cm (06/21/23 11:19 AM) Patient Weight 86.7 kg (06/21/23 11:19 AM) Body Mass Index 30 kg/m2 (06/21/23 11:19 AM) Heart Rate 59 bpm (06/21/23 11:19 AM) Respiratory Rate 12 br/min (06/21/23 11:19 AM) Blood Pressure 120/80mmHg (06/21/23 11:19 AM) Cuff Pulse Pressure 40 mmHg (06/21/23 11:19 AM) Social History Social History Type Response Tobacco Cigarettes, 8 year(s ). Total pack years: 4. Started age 22 Years. Stopped age 30 Years. Smoking Status Never smoked cigaret katherine Sex Male FCM Outpt Note * MD Alessandra, Mayda Kohler: MODIFY MD Aparicio Amy L: MODIFY Event Display: FCM Outpt Note Authored Date: [id number] Chief Complaint med review History of Present Illness Damion is a 58 year-old male who presents today for medication review. -Stable on sertraline for extended period, feels it is working well -Also on levothyroxine- previously seen by endocrine but has been managed by Dr. Bob for a period of time -Last blood work was completed last summer -No acute complaints today -Denies chest pain, shortness of breath Physical Exam Vitals & Measurements HR:59(Monitored) RR:12 BP:120/80 SpO2:95% HT:170cm WT:86.700kg(Dosing) WT:86.7kg BMI:30 PHQ2 Data(Data Documented on:06/21/2023 11:19) Emotional health assessment NEGATIVE General:Alert and oriented, No acute distress HEENT: Normocephalic, Nl gross hearing, moist oral mucosa Cardiovascular:Normal rate, Regular rhythm, No murmur, No gallop. No lower extremity edema. Respiratory:Lungs are clear to auscultation, Respirations are non-labored, Breath sounds are equal Integumentary:Warm, Dry, [place]. Psych: Mood-affect congruence. Speech is of normal pace and content Assessment/Plan 1.Hypothyroidism Chronic condition, stable Goal:Resolution Data:unique tests ordered: _TSH, Free T4 Plan: Will recheck blood work as above, adjust levothyroxine dosage as needed. 2.Hyperlipemia Chronic condition, stable Goal:Resolution Data:unique tests ordered: _Lipid profile Plan: Will recheck fasting lipid panel. Adjust statin as indicated. 3.Seasonal affective disorder Chronic condition, stable Goal:Resolution Data:PHQ-2 of 0 Plan: Continue current dose of Sertraline Attestation Attestation -I discussed this patient with Dr. Gomez. The assessment and plan was developedwith her and carried out at my direction. I have read and agree with her note. Problem List/Past Medical History Ongoing Annual physical exam Daytime sleepiness Decreased hearing FH: CAD (coronary artery disease) GERD Health care maintenance Hyperlipemia Hypothyroidism Ligament of wrist or hand Moderate obstructive sleep apnea Raynaud's syndrome Rhinitis Seasonal affective disorder Septoplasty unspecified Snoring Historical Allergy testing done DERMATITIS Procedure/Surgical History Coronary artery calcium score (06/06/2022)Upper GI endoscopy (05/09/2017)Colonoscopy (04/20/2017)Radio-carpal dislocation--Surgical repair (10/29/2007)nevus excision - nose - benign (10/29/2007)sinus sugery (08/29/2002)ECHO-- WNL per pt (10/29/2001)septoplasty (08/29/1992) tonsillectomy adenoidectomy (10/29/1971) Medications atorvastatin(atorvastatin 10 mg oral tablet), See Instructions cholecalciferol(Vitamin D3 2000 intl units oral capsule), 2000 Int_Unit= 1 cap, PO, Daily famotidine(famotidine 20 mg oral tablet), See Instructions, 2 refills levothyroxine(levothyroxine 100 mcg (0.1 mg) oral tablet), See Instructions sertraline(sertraline 100 mg oral tablet), See Instructions, 3 refills Allergies AstelinInsomnia. LexaproInsomnia. [place]'s wortInsomnia. WellbutrinInsomnia. Social History Smoking Status Never smoked cigarettes Alcohol - Denies Alcohol Use Average drinks per episode in last year:0 Employment/School Status:Employed Description:[employer] Activity level:Occasional physical work Highest education:University degree(s) Other:BS in Aerospace Engineering Exercise - Occasional exercise Duration (average number of minutes):0 Home/Environment Lives with:Children, Spouse Living situation:Home/Independent Alcohol abuse in household:No Substance abuse in household:No Smoker in household:No Nutrition/Health Type of diet:Regular Sexual Sexually active:Yes Current partners:1 Substance Abuse - Denies Substance Abuse Tobacco - Denies Tobacco Use Type:Cigarettes Number of years:8 Total pack years:4 Started at age:22Years Stopped at age:30Years Family History Alive and well: Father, Sister, Brother, Brother, Brother, Daughter, Son and Son. Heart attack: Father. Heart disease: Father. Osteoarthritis: Mother. Health Status Family Member(s) Immunizations Vaccine Date Status hepatitis B adult vaccine 05/25/2022 Given SARS-CoV-2 (COVID-19) mRNA BNT-162b2 vax 09/05/2021 Recorded influenza virus vaccine, inactivated 08/20/2021 Given zoster vaccine, inactivated 05/23/2021 Given tetanus/diphtheria/pertuss, acel (Tdap) 11/22/2020 Given zoster vaccine, inactivated 11/22/2020 Given influenza virus vaccine, inactivated 08/18/2020 Given influenza virus vaccine, inactivated 07/24/2017 Given influenza virus vaccine, inactivated 07/21/2014 Given influenza virus vaccine, inactivated 07/15/2013 Given influenza virus vaccine, inactivated 07/23/2012 Given influenza virus vaccine, H1N1 07/29/2011 Recorded tetanus/diphtheria/pertuss, acel (Tdap) 10/05/2005 Recorded Recommendations Health Maintenance Pending(in the next year) OverDue Adult Influenza Vaccine due04/28/23and every 1year Due Adult COVID-19 Vaccination due06/21/23Unknown Frequency Due In Future Body Mass Index not due until06/20/24and every 1year Satisfied(in the past 1 year) Satisfied Body Mass Index on06/21/23.Satisfied by AVELINA Hilton Paul Electronic Signature on File Electronically Reviewed/Signed by: Cherie Gomez Author Signature Dt/Tm:06/21/2023 01:28 PM Resident Department of Family Medicine Electronically Reviewed/Signed by: Mayda Aparicio MD Cosigner Signature Dt/Tm: 06/21/2023 07:04 PM [facility] [address] [place] [address] PMW Patient Care team information Care Team Personnel Name: MD Bob Michael P Position: Physician - Family Med Member Role: Primary Care Provider Address: Address: [address] [facility] [address] [place] [address] [place] Care Team Related Persons Name: RE BUCKNER Address: home [address] [place] [phone]
--- NOTE | 2023-09-26 07:00 | Hospitalist Progress Note ---
Date of Service September 26, 2023 Assessment & Plan (1) Zygomatic fracture, right side, initial encounter for open fracture: (2) Orbital wall fracture: (3) Maxillary fracture, right side, initial encounter for closed fracture: (4) Subconjunctival hemorrhage of right eye: (5) Hypomagnesemia: Plan Maxillary fracture, right side, initial encounter for closed fracture -Admit to med/surge -Currently stable with pain controlled, pain controlled w/ Tylenol and morphine -Patient is currently without neurologic symptoms, airway swelling/stridor, or acute bleeding - subconjunctival hemorrhage noted upon exam this morning, pooled blood in r. eye inferolaterally - Facial CT shows the acute fractures of the right maxillary and right orbital wall - CT of the head negative for acute trauma - Dr. Solis will take the patient to the OR tomorrow for repair - S/P one dose of Unasyn in the ED, will continue with Unasyn for now - Will obtain MRSA swab, if positive will escalate abx to cover - BL MIRNA's for DVT PPX -AM labs: CBC nml, PT/INR nml; recheck labs tomorrow Orbital wall fracture/subconjunctival hemorrhage of r. eye -See maxillary fracture -No changes in vision or eye trauma - subconjunctival hemorrhage noted upon exam, pooled blood in r. eye inferolaterally Hypomagnesemia, mild - Mg 1.6 (09/26/23) - recheck Mg tomorrow Hypothyroidism -Continue levothyroxine Dyslipidemia -Continue statin Admission and Anticipated Discharge Date Admission Date: September 25, 2023 Supervising Physician Co-Signing Physician Notes Attending attestation Pt seen and examined in concert with Dr. Mar. In agreement with the documented findings as noted in the resident documentation with any exceptions or additions as noted here. Resting in bed with well controlled pain on APAP only. On examination, S1/S2 nl RRR no MCG. CTAB. Abd NT/ND BS+ve, dressings CDI on face VS: 138/80, 87, 18, 36.3C, 98 2LNC Data: WBC 6.44, hgb 14.2, INR 1, Cr 1 Maxillary sinus fracture - OMFS consult - OR today. Pain control with APAP, morphine for breakthrough postoperatively. IV hydration Else see resident documentation as noted. Sue Bray is a 58 year old male with a PMH significant for hypothyroidism, hyperlipidemia, and anxiety who presented to the [facility] ED after sustaining a laceration to the face while using a table saw earlier yesterday. Per ED, patient was cutting a piece of wood on the table saw when the piece of wood was kicked back hitting him on the right cheek. - remained stable while in the ED - CT of the face w/o con was read as 1. Acute, comminuted, angulated and displaced right maxillary and orbital wall fractures with acute nondisplaced right zygomatic arch fracture (zygomaticomaxillary complex fractures). 2. Right facial contusions with laceration. 3. Intact pterygoid bones. - CT of the head w/o con was unremarkable, w/o acute findings; labs including CBC and CMP were unremarkable - Dr. Solis of ENT comfortable with patient staying at our facility, plans to take patient to OR tomorrow for surgical repair. Prior to admission the patient was given a dose of Unasyn, 4 mg IV morphine, 4 mg IV Zofran, and his wound was sutured. Review of Systems Constitutional: no fever, no chills and no fatigue Eyes: + eye pain (pain of r. eye orbit) Respiratory: no cough and no dyspnea Cardiovascular: no chest pain, no dyspnea and no palpitations Gastrointestinal: no nausea, no vomiting, no constipation and no diarrhea/loose stools Neurologic: no dizziness, no headache(s) and no confusion Physical Exam Constitutional: WD/WN, vitals as above Eyes: normal visual doe by confrontation (peripheral visual doe intact also), + conjunctival abnormality, PERRL, EOM intact bilaterally and reactive pupils Respiratory: normal respiratory effort, lungs clear to auscultation Cardiovascular: RRR, no murmur, no edema Neurologic: CN's II-XI intact bilaterally Cranial Nerves: PERRL, normal accommodation, EOM intact bilaterally and normal facial strength Results & Data Results & Data Vital Signs (Past 12 Hours) Vital Signs Temp Pulse Resp BP Pulse Ox Pulse Ox O2 Del Method 09/25/23 23:12 94 09/25/23 22:49 36.3 C L 79 16 165/95 H 97 Room Air 09/25/23 21:58 88 20 149/85 H 98 Room Air 09/25/23 20:50 110 H 20 139/98 95 Room Air 09/25/23 19:42 67 17 146/86 H 96 Room Air O2 Del Method 09/25/23 23:12 Room Air 09/25/23 22:49 09/25/23 21:58 09/25/23 20:50 09/25/23 19:42
[2023-09-26 07:21] LABS: Basophils # (auto) 0.01 K/uL (0.00-0.20); Basophils % (auto) 0.2 %; Eosinophils # (auto) 0.08 K/uL (0.00-0.50); Eosinophils % (auto) 1.2 %; Hematocrit (blood only) 41.1 % (42.0-52.0); Hemoglobin 14.2 g/dl (14.0-18.0); Immature Granulocytes # (auto) 0.02 K/uL (0.01-0.20); Immature Granulocytes % (auto) 0.3 %; Lymphocytes % (auto) 29.5 %; Mean Corpuscular Hemoglobin 30.1 pg (25.0-34.0); Mean Corpuscular Hgb Conc 34.5 g/dL (32.0-36.0); Mean Corpuscular Volume 87.1 fL (80.0-100.0); Mean Platelet Volume 9.9 fL (9.4-12.4); Monocytes # (auto) 0.57 K/uL (0.11-0.59); Monocytes % (auto) 8.9 %; Neutrophils # (auto) 3.86 K/uL (1.40-6.50); Neutrophils % (auto) 59.9 %; Platelet Count 145 K/uL (130-400); RDW Coefficient of Variation 12.4 % (11.5-14.5); RDW Standard Deviation 39.8 fL (36.4-46.3); Red Blood Count 4.72 M/uL (4.70-6.10); White Blood Count 6.44 K/ul (4.8-10.8)
--- NOTE | 2023-09-26 07:30 | XRay Report ---
XR chest 1V portable HISTORY: 58 years-old Male preoperative preoperative exam. COMPARISON: None TECHNIQUE: AP view of the chest FINDINGS: Cardiomediastinal and hilar silhouettes are within normal limits. No pneumothorax, pleural effusion o r airspace consolidation. Bones appear grossly intact with degenerative changes of the shoulders and spine. IMPRESSION: No acute process. ACT 112: Negative or not required by law. The above report was generated using voice recognition software. It may contain grammatical, syntax o r spelling errors. Electronically signed by: Modesto Barnett M.D. 09/26/2023 7:28 AM
[2023-09-26 07:44] LABS: Albumin Globulin Ratio 1.9 (0.9-2); Bilirubin,Total 0.6 mg/dl (0.2-1.0); Calcium 8.7 mg/dl (8.6-10.3); Creatinine Clr Calc Pharmacy 84.4 ml/min; Est GFR (African American) 97.1 ml/min; Est GFR (Non-African American) 83.8 ml/min; Globulin 2.1 gm/dl (2.5-4.0); Magnesium 1.6 mg/dl (1.7-2.4); Potassium 3.7 mmol/L (3.5-5.1); Total Protein 6.1 gm/dl (6.0-8.3)
[2023-09-26 07:53] LABS: Prothrombin Time 11.1 Seconds (9.0-12.0)
[2023-09-26] MEDS: ACETAMINOPHEN 1,000 MG/100 ML VIAL IV PRN ×2 (08:19→19:58)
--- NOTE | 2023-09-26 10:29 | Anesthesiology Consultation ---
Date of Service September 26, 2023 Assessment & Plan (1) Encounter for pre-operative examination: Chart Review Chart Review: Acceptable Risk for Surgery and Patient NOT seen in Pre Admission Testing Consults Requested none History Surgery Operation Date: 09/26/23 08:40 Proposed Procedures p Right Zygomatic Ocular Contracture - Daniel Ana Laura Solis, DMD Height/Weight Height: 5 ft 7 in Weight: 81.8 kg Allergies Allergy/AdvReac Type Severity Reaction Status Date / Time No Known Allergies Allergy Verified 09/25/23 18:46 Medications Home Medications Medication Instructions Recorded Confirmed Last Taken sertraline 100 mg tablet 100 mg PO DAILY 07/17/19 09/25/23 09/25/23 atorvastatin 10 mg tablet 10 mg PO DAILY 09/25/23 09/25/23 09/25/23 levothyroxine 100 mcg tablet 100 mcg PO DAILYBB 09/25/23 09/25/23 09/25/23 multivitamin 1 tab PO DAILY 09/25/23 09/25/23 09/25/23 Active Medications Generic Name Dose Route Start Last Admin Trade Name Eliecerq PRN Reason Stop Dose Admin Ampicillin Sodium/Sulbactam 100 mls @ 100 mls/hr 09/26/23 02:00 09/26/23 10:02 Sodium 3,000 mg/ Sodium IV 10/06/23 01:59 Infused Chloride Q6H ANGI Infusion Acetaminophen 1,000 mg in 100 mls @ 400 mls/hr 09/25/23 21:20 09/26/23 08:56 Ofirmev IV 09/28/23 21:19 Infused Q8H PRN Infusion pain(1-4) or fever Morphine Sulfate 2 mg 09/25/23 21:20 09/25/23 23:20 Morphine Sulfate 2 Mg/Ml Carp IV 10/09/23 21:19 2 mg Q3H PRN Administration Pain(5+) Social History Smoking Status: Never smoker Do You Dip or Chew Tobacco: No Hx Alcohol Use: Yes alcohol intake frequency: holidays/special occasions only Hx Substance Use: No Physical Exam Vital Signs Last Vital Signs Temp 97.9 F 09/26/23 07:00 Pulse 57 L 09/26/23 07:00 Resp 18 09/26/23 07:00 BP 121/78 09/26/23 07:00 Pulse Ox 96 09/26/23 07:00 O2 Del Method Room Air 09/26/23 07:00 Testing Laboratory Results 09/26/23 07:02 09/26/23 07:02 PT 11.1 Seconds (9.0-12.0) 09/26/23 07:02 INR 1.0 (0.9-1.1) 09/26/23 07:02 Electrocardiogram Date: 09/25/23 Findings: + NSR @ Chest X-Ray Date: 09/25/23 Findings: + NAD
--- NOTE | 2023-09-26 11:54 | Electrocardiogram Report ---
Test Reason : Blood Pressure : / mmHG Vent. Rate : 069 BPM Atrial Rate : 069 BPM P-R Int : 202 ms QRS Dur : 076 ms QT Int : 386 ms P-R-T Axes : 048 031 046 degrees QTc Int : 413 ms Normal sinus rhythm When compared with ECG of 03-MAR-2014 10:28, No significant change was found Confirmed by Toby Rg ([id number]) on 09/26/2023 11:53:35 AM Referred By: REFERRED SELF Confirmed By:Mina Rg
--- NOTE | 2023-09-26 13:42 | History & Physical Bridge Note ---
Date of Service September 26, 2023 History & Physical Bridge Note I have examined the patient, reviewed the History & Physical and in the interval since the performance of the History & Physical I have noted the following changes of clinical significance: no changes noted. OK for the planned surgery Open reduction of right ZMOC fracture and repair of facial laceration
[2023-09-26] MEDS ORDERED: fentaNYL citrate PF 100 MCG/2 ML VIAL ONE ×2 (13:55→15:22)
[2023-09-26] MEDS ORDERED: MIDAZOLAM HCL 1 MG/ML 2ML VIAL ONE (13:55)
[2023-09-26] MEDS ORDERED: AMPICILLIN/SULBACTAM SOD 3,000 MG in SODIUM CHLOR 0.9% MINI-B 100 ML IV ONE (14:00)
[2023-09-26] MEDS ORDERED: BUPIVACAINE/EPINEPHRINE 0.5% 1:200,000 1.8 ML CARP ONE (14:17)
[2023-09-26] MEDS ORDERED: CHLORHEXIDINE GLUCONATE 0.12% 480 ML MT ONE (14:18)
[2023-09-26] MEDS ORDERED: NALOXONE HCL 0.4 MG/1 ML VIAL/CARP IV PRN (14:22)
[2023-09-26] MEDS ORDERED: fentaNYL citrate PF 100 MCG/2 ML VIAL IV PRN (14:22)
[2023-09-26] MEDS ORDERED: ONDANSETRON INJ 2 MG/ML 2 ML VIAL IV PRN (14:22)
[2023-09-26] MEDS ORDERED: PROMETHAZINE HCL 12.5 MG in SODIUM CHLORIDE 0.9% 50 ML IV PRN (14:22)
[2023-09-26] MEDS ORDERED: ATROPINE SULFATE 0.1 MG/ML 10ML SYR IV PRN (14:22)
[2023-09-26] MEDS ORDERED: LABETALOL HCL IV 5 MG/ML 20ML IV PRN (14:22)
[2023-09-26] MEDS ORDERED: ePHEDrine sulfate 50 MG/ML AMP IV PRN (14:22)
[2023-09-26] MEDS ORDERED: HYDROmorphone INJ 1 MG/ML SYRINGE IV PRN (14:22)
[2023-09-26] MEDS ORDERED: FLUMAZENIL 0.1 MG/1 ML 10 ML VIAL IV PRN (14:22)
[2023-09-26] MEDS ORDERED: KETAMINE HCL 10MG/ML SYR ONE (14:26)
[2023-09-26] MEDS ORDERED: ROCURONIUM BROMIDE 10 MG/ML 5 ML VIAL IV ONE (14:56)
[2023-09-26] MEDS ORDERED: DEXAMETHASONE SOD INJ 4 MG/ML VIAL ONE (14:56)
[2023-09-26] MEDS ORDERED: ONDANSETRON INJ 2 MG/ML 2 ML VIAL ONE (14:56)
[2023-09-26] MEDS ORDERED: LIDOCAINE 2% 2 ML VIAL/AMP(20MG/ML) INFIL ONE (14:56)
[2023-09-26] MEDS ORDERED: PROPOFOL IV EMULSION 10 MG/ML 20 ML VIAL IV ONE (14:56)
[2023-09-26] MEDS ORDERED: ARTIFICIAL TEARS OP OINT 3.5 GM TUBE ONE (15:02)
[2023-09-26] MEDS ORDERED: SUGAMMADEX SODIUM 200 MG/2 ML VIAL IV ONE (15:38)
[2023-09-26] MEDS ORDERED: ePHEDrine sulfate 50 MG/5 ML SYR ONE (15:48)
[2023-09-26] MEDS ORDERED: KETOROLAC 30 MG/ML VIAL ONE (16:27)
--- NOTE | 2023-09-26 16:42 | Post Operative Brief Note ---
PG Immediate Post Op with CF Date of Surgery September 26, 2023 Pre & Post Diagnosis Operation Date: 09/26/23 08:40 Pre-Op Diagnosis: Zygomatic fracture- right side, complex laceration of face Post-Op Diagnosis: Zygomatic fracture- right side, complex laceration of face I identified the patient and participated in the time-out.: Yes Procedure Operation Date: 09/26/23 08:40 Actual Procedures p Open Reduction Right Zygomatic Complex Fracture and Repair Right Complex Facial Laceration(Right) - Daniel Solis DMD Surgeon Daniel Solis, SUZANNE Production Finisher none Estimated Blood Loss 10 Findings Consistent with Post-Op Diagnosis depressed ZMOC and complex laceration of the right cheek Specimens Specimen Description: none per surgeon Anesthesia Type General Complications none
--- NOTE | 2023-09-26 17:02 | Anesthesiology Progress Note ---
Date of Service September 26, 2023 Anesthesia Post Procedure Vital Signs Vital Signs: Temp Pulse Resp BP Pulse Ox Pulse Ox O2 Del Method 09/26/23 13:34 36.9 C 60 18 127/76 97 Room Air 09/26/23 07:00 36.6 C 57 L 18 121/78 96 Room Air 09/25/23 23:12 94 09/25/23 22:49 36.3 C L 79 16 165/95 H 97 Room Air 09/25/23 21:58 88 20 149/85 H 98 Room Air 09/25/23 20:50 110 H 20 139/98 95 Room Air 09/25/23 19:42 67 17 146/86 H 96 Room Air O2 Del Method 09/26/23 13:34 09/26/23 07:00 09/25/23 23:12 Room Air 09/25/23 22:49 09/25/23 21:58 09/25/23 20:50 09/25/23 19:42 Pain Intensity Right Face: Pain Intensity: 3 Transfer of Care Handoff Completed per policy Notes Mental Status: alert / awake / arousable Patient Amnestic to Procedure: Yes Nausea / Vomiting: adequately controlled Pain: adequately controlled Airway Patency, RR, SpO2: stable & adequate BP & HR: stable & adequate Hydration State: stable & adequate Anesthetic Complications: no major complications apparent and Pt Satisfied with anesthetic care
--- NOTE | 2023-09-26 18:13 | XRay Report ---
FACIAL BONES 2 VIEWS CLINICAL HISTORY: Postreduction examination. FINDINGS: AP, supine and crosstable lateral portable views of the facial bones are correlated with fa [facility] bone CT scan dated 09/25/2023. The skeletal structures are well-mineralized. A small buttress pl ate is seen along the lateral wall of the right orbit. Alignment of the right orbit is grossly anatom ic. Comminuted right maxillary sinus fractures and a right zygomatic arch fracture are again noted an d were much better assessed on yesterday's CT scan. There is opacification of the right maxillary ant rum. The remaining visualized paranasal sinuses are grossly clear. The imaged calvarium is grossly in tact. No depressed nasal bone fracture is seen. The mandible is intact as imaged. IMPRESSION: 1. There has been buttress plate fixation along the lateral wall of the right orbit. Alignment of the right orbit is grossly anatomic. 2. Comminuted fractures of the right maxillary sinus as well as a fracture of the right zygomatic arc h fracture are again noted and were much better assessed by CT. Dictated: 09/26/2023 5:26 PM Transcribed: 09/26/2023 5:32 PM Dion [id number] Electronically signed by: Camden Salmon M.D. 09/26/2023 6:12 PM
[2023-09-26] MEDS ORDERED: COUGH DROP (SUGAR FREE) LOZ 24 LOZ/1 BOX BUCCAL PRN (20:02)
[2023-09-26] MEDS: MoRPHine SULFATE 2 MG/ML CARP IV PRN (22:32)
[2023-09-27] MEDS: AMPICILLIN/SULBACTAM SOD 3,000 MG in SODIUM CHLOR 0.9% MINI-B 100 ML IV SCH ×2 (01:47→08:40)
[2023-09-27 08:01] LABS: Basophils # (auto) 0.01 K/uL (0.00-0.20); Basophils % (auto) 0.1 %; Hematocrit (blood only) 38.6 % (42.0-52.0); Hemoglobin 13.6 g/dl (14.0-18.0); Immature Granulocytes # (auto) 0.03 K/uL (0.01-0.20); Immature Granulocytes % (auto) 0.3 %; Lymphocytes % (auto) 14.4 %; Mean Corpuscular Hemoglobin 30.2 pg (25.0-34.0); Mean Corpuscular Hgb Conc 35.2 g/dL (32.0-36.0); Mean Corpuscular Volume 85.6 fL (80.0-100.0); Mean Platelet Volume 9.8 fL (9.4-12.4); Monocytes # (auto) 0.57 K/uL (0.11-0.59); Monocytes % (auto) 6.3 %; Neutrophils # (auto) 7.14 K/uL (1.40-6.50); Neutrophils % (auto) 78.9 %; Platelet Count 158 K/uL (130-400); RDW Coefficient of Variation 12.4 % (11.5-14.5); RDW Standard Deviation 38.9 fL (36.4-46.3); Red Blood Count 4.51 M/uL (4.70-6.10); White Blood Count 9.05 K/ul (4.8-10.8)
[2023-09-27 08:12] LABS: Albumin Level 3.9 gm/dl (3.4-5.0); BUN Creatinine Ratio 14.9 (10-20); Bilirubin,Total 0.6 mg/dl (0.2-1.0); Calcium 8.7 mg/dl (8.6-10.3); Creatinine Clr Calc Pharmacy 83.6 ml/min; Est GFR (African American) 95.9 ml/min; Est GFR (Non-African American) 82.8 ml/min; Magnesium 1.8 mg/dl (1.7-2.4); Potassium 4.4 mmol/L (3.5-5.1); Total Protein 5.9 gm/dl (6.0-8.3)
[2023-09-27 08:18] LABS: Prothrombin Time 11.1 Seconds (9.0-12.0)
--- NOTE | 2023-09-27 09:13 | Oral/Maxillofacial Progress Nt ---
Date of Service September 27, 2023 Assessment & Plan Admission and Anticipated Discharge Date Admission Date: September 25, 2023 Subjective Post OP note for facial laceration and ZMOC fracture repair at 24 hours The repaired laceration looks great. The tissue no evidence of a hematoma. periorbital ecchymosis as expected. No sinus issues. Cheek bone is stable with good projection, the step defect is now gone once the ZMOC was reduced. Post op X-Ray look good Facial nerve intact. Over all the result is excellent and the patient is very please. RTC next week for suture removal OK for discharge today Rx Augmentin, Vicodin and Peridex Instructions given . Results & Data Vital Signs (Past 12 Hours) Vital Signs Temp Pulse Resp BP BP Pulse Ox O2 Del Method 09/27/23 07:00 36.6 C 63 16 127/75 95 Room Air 09/27/23 01:43 36.6 C 76 16 109/64 95 Room Air PG Care Time/CCT Total # of Minutes Spent Total Time Spent with Patient: Total time spent is greater than 50% in coordination of care (as documented) at patient's floor/unit and/or counseling patient: Coding Level of Care Code 51544 SUB INP/OBS CARE 125MIN
--- NOTE | 2023-09-27 12:22 | Discharge Summary ---
Date of Service September 27, 2023 Admission HPI Per Admitting Provider Asa is a 58 year old male with a PMH significant for hypothyroidism, hyperlipidemia, and anxiety who presented to the [facility] ED after sustaining a laceration to the face while using a table saw earlier today. Per the ED, the patient was cutting a piece of wood on the table saw when the piece of wood was kiced back hitting him on the right cheek. He remained stable while in the ED. CT of the face wo con was read as 1. Acute, comminuted, angulated and displaced right maxillary and orbital wall fractures with acute nondisplaced right zygomatic arch fracture (zygomaticomaxillary complex fractures). 2. Right facial contusions with laceration. 3. Intact pterygoid bones.. CT of the head wo con was read as No acute intracranial hemorrhage, midline shift, or mass effect.". Labs including CBC and CMP were unremarkable. The ED staff spoke with Dr. Solis of ENT who was comfortable with the patient staying at our facility. He plans to take the patient to the OR tomorrow for surgical repair. Prior to admission the patient was given a dose of Unasyn, 4 mg IV morphine, 4 mg IV Zofran, and his wound was sutured. At the time of the exam the patient was sitting in bed in no acute distress with his sitting bedside. He states that he was cutting a piece of wood on his table saw when it was kicked backwards by the blade. The wood hit his right cheek. He was wearing safety glasses, which were broken during the event, but his eyes were spared. He states that he immediately had severe pain and bleeding at the injury site. Currently his pain is controlled. He denies loss of consciousness during the accident, paresthesia, changes in vising, hearing, trismus, airway/mouth swelling, difficulty swallowing, SOB, chest pain, abd pain, vomiting, dysuria, hematuria, melena, and other recent trauma. He uses nicotine but not tobacco and has not had alcohol since . Please refer to Dr. Neri's attestation for any changes to the treatment plan Admission Exam Per Admitting Provider Physical Exam: Physical Exam: General: In no acute distress, stated age, well-nourished, good hygiene HEENT: Patient with recent laceration sutured and without current bleeding, swelling of the right face without extension to the eye or neck, patient able to open mouth without difficulty, no swelling or drooling on inspection of the oropharynx, No scleral icterus, pupils around round, symmetrical, and reactive to light, moist mucus membranes, trachea midline, no thyromegaly Chest/Pulm: No respiratory distress, symmetrical chest expansion, clear breath sounds throughout Cardiac: RRR, no murmurs noted Abdomen: Negative for ascites and bruising, normoactive bowel sounds, soft, non- tender to palpation throughout Musculoskeletal: No other acute trauma on exam Extremities: Radial, dorsalis pedis, and posterior tibial pulses are intact and symmetrical, no edema noted in the BL LE's Skin: Warm, dry, no rashes , lesions, or scars noted Neuro: Alert and oriented to person, place, month, year, and president, no focal defects, CN II-XII tested and intact, finger to nose test negative, no tremors noted Psych: No acute distress, calm and cooperative during the exam Principal Diagnosis r. orbital, maxillary, and zygomatic fracture s/p floral department specialist Discharge Exam Constitutional WD/WN, vitals as above Eyes normal visual doe by confrontation (peripheral visual doe intact also), + conjunctival abnormality, EOM intact bilaterally and + abnormal pupil size (r. pupil not responding to light) Respiratory normal respiratory effort, lungs clear to auscultation Cardiovascular RRR, no murmur, no edema Gastrointestinal (Abdomen) normal bowel sounds, soft, nontender, no hepatosplenomegaly Neurologic CN's II-XI intact bilaterally Cranial Nerves: PERRL, normal accommodation, EOM intact bilaterally and normal facial strength Discharge Data Allergies Allergy/AdvReac Type Severity Reaction Status Date / Time No Known Allergies Allergy Verified 09/25/23 18:46 Procedures Performed Operation Date: 09/26/23 08:40 Actual Procedures p Open Reduction Right Zygomatic Complex Fracture and Repair Right Complex Facial Laceration(Right) - Daniel Solis DMD Ordered Studies 09/25/23 16:21 CT face [CT facial bones wo con] Stat 09/25/23 18:51 CT head/brain wo con Stat Hospital Course (1) Zygomatic fracture, right side, initial encounter for open fracture: (2) Orbital wall fracture: (3) Maxillary fracture, right side, initial encounter for closed fracture: (4) Subconjunctival hemorrhage of right eye: (5) Hypomagnesemia: Plan Maxillary fracture, right side, initial encounter for closed fracture -Admitted to med/surge, initially without neurologic symptoms, airway swelling/stridor, or acute bleeding - Facial CT shows the acute fractures of the right maxillary and right orbital wall - CT of the head negative for acute trauma - MRSA swab obtained, negative - S/P oral-maxillofacial surgery pt discharged on Augmentin Discharged on Vicodin, for pain; take Tylenol, PRN Orbital wall fracture/subconjunctival hemorrhage of r. eye - See maxillary fracture - subconjunctival hemorrhage noted upon exam pre-surgery, pooled blood in r. eye inferolaterally - S/P surgery (09/27/23): R. pupil dilated, not responding to light, probably secondary to increased intraocular pressure; will be assessed during F/U appt w/ Dr. Solis No changes in visual acuity, peripheral field vision b/l Hypomagnesemia, mild - Mg 1.6 (09/26/23) --> repeated (09/27/23), Mg, 1.8, nml Hypothyroidism -Continue levothyroxine Dyslipidemia -Continue statin Total Time Total Time Spent Total Time Spent (In Minutes): I spent 30 minutes seeing the patient, chart review, discussion with surgery, and documentation. Discharge Plan Discharge Items Patient Disposition: Home - Self-Care Reason For Visit: FACIAL TRAUMA Discharge Diagnosis: Facial laceration and fractured ZMOC right side Condition on Discharge: Good Activity: Per Instructions section Activity Comment: take it easy until I see you next week Lifting: No more than 10 pounds Bathing: Keep incision dry Bathing Comment: Starting tomorrow no restriction may shower and get area wet Exercise/Sports: Wait until after follow-up appointment Driving/Machine Use: Resume 1 day after discharge Non-emergency contact: Surgeon Call non-emergency contact if: your symptoms worsen, your pain is worsening, your temperature is above 101.5, your wound has increased drainage and your wound pain has increased Follow-up/Referrals: Hamilton Bob [Primary Care Provider] - 10/04/23 10:25 am ([address]rie [address] DR; [facility] ) Daniel Solis DMD [Physician] - 10/04/23 2:00 pm Diet: Regular Diet Texture: Easy to Chew Addtl Attending Provider Instructions: ADDITIONAL ACTIVITY RECOMMENDATIONS: * [place] teeth after every meal. It is very important to keep your mouth clean to prevent infection. * Starting tonight rinse with the Peridex as directed then 2 x a day * it is very important to keep well hydrated, this prevents fever SPECIAL CARE INSTRUCTIONS: *It is not uncommon that between day 2-4 that your swelling will be at its worst this is very normal, do not be alarmed. * Keep ice on the side of your face for the next 24 to 36 hours. This will help keep the swelling down. * Tomorrow start rinsing your mouth with 1/2 teaspoon salt in 8 ounces warm water. This rinse should be used every 4-6 hours. * You may experience slight nausea. To prevent this, never take your medication on an empty stomach. If nauseated, take small sips of gamaliel golden until you feel better; then you may start on applesauce and toast. * A certain amount of bleeding is to be expected. It is often possible to control mild oozing by placing folded gauze over the area and biting down for 30 minutes. If you are unable to control excessive bleeding, call Dr Solis at [phone] * You may experience some discomfort for a few days. If pain or swelling increases, Call Dr Solis * Return to the office for a follow up check up on: SundayOCT 04 at 2 pm suture removal * office address--[address] phone # [phone] Pending Studies at Discharge: No Stand-Alone Forms: My [facility], Smoking Cessation Medications and DC Order Prescriptions: Continued amoxicillin-pot clavulanate 875-125 mg tablet 1 tab PO Q12H Qty: 20 0RF hydrocodone-acetaminophen 5-325 mg tablet 1 tab PO Q4H PRN (Reason: pain) Qty: 10 0RF ondansetron HCl 8 mg tablet 8 mg PO Q8H PRN (Reason: nausea and vomiting) Qty: 10 0RF sertraline 100 mg tablet 100 mg PO DAILY multivitamin Tablet 1 tab PO DAILY atorvastatin 10 mg tablet 10 mg PO DAILY levothyroxine 100 mcg tablet 100 mcg PO DAILYBB Rx Instructions: 100 mcg PO TAKE ON AN EMPTY STOMACH WITH A FULL GLASS OF WATER, WAIT 30 MINUTES TO EAT, DRINK, OR TAKE MEDICATIONS; Discharge Orders: Discharge Order (Routine); Ordered 11/30/23 Ordered By: Daniel Goddard/Other Patient Handouts: ED Facial Fracture Admission Data Admit Date/Time: 09/25/23 22:04 Attending Provider: Toby Walker Admit Provider: Kahterine Neri Primary Care Provider: Hamilton Bob Other Interventions: Discharge Summary Assessment (RN) Last Done: 09/27/23 09:27 Supervising Physician Co-Signing Physician Notes Attending attestation I independently saw the patient and confirmed perez portions of the history and exam. I discussed the case with the resident and I agree with the impression and plan as noted in his documentation. I also personally discussed the case with Dr. Solis. Patient without complaints; pain controlled. VS as noted. Afebrile. A/O. Heart regular Respirations non labored Impression and Plan Maxillary sinus fracture - S/P surgical repair Discharge instructions as noted above. Additional per resident documentation
--- NOTE | 2023-10-20 15:54 | Operative Report ---
PG Post Operative Report Pre & Post Diagnosis Operation Date: 09/26/23 08:40 Pre-Op Diagnosis: Zygomatic fracture- right side, complex laceration of face Post-Op Diagnosis: Zygomatic fracture- right side, complex laceration of face I identified the patient and participated in the time-out.: Yes Procedure Operation Date: 09/26/23 08:40 Actual Procedures p Open Reduction Right Zygomatic Complex Fracture and Repair Right Complex Facial Laceration(Right) - Daniel Solis, SUZANNE Surgeon Daniel Solis, SUZANNE Stave Log Ripsaw Operator none Estimated Blood Loss 10 Findings Consistent with Post-Op Diagnosis Specimens none Drains none Anesthesia Type General Complications none Indications Facial fracture and complex laceration Description of Procedure Pre & Post Diagnosis Pre-Op Diagnosis: Zygomatic Fracture Complex with displacement of Z-F, Buttress and infraorbital rim Post-Op Diagnosis: Zygomatic Fracture with displacement of Z-F, Buttress and infraorbital area. Diagnoses Zygomatic fracture, right side, initial encounter for open fracture S02.40EB Complex laceration of face, initial encounter S01.91XA Encounter type: initial encounter CPT Codes COMPLEX REPAIR FACE (RIGHT CHEEK) 2.6-7.5 CM - CPT 88172 ([id number]) OPEN TX COMPLEX MALAR FX - CPT 85598 ([id number]) (2) Complex laceration of face Encounter type: initial encounter Qualified Code(s): S01.91XA - Laceration without foreign body of unspecified part of head, initial encounter OPEN REDUCTION OF RIGHT ZMOC FRACTURE WITH BONE PLATES AT THE Z-F OPEN TX COMPLEX MALAR FX CPT 03758 ([id number]) Once cleared for surgery general anesthesia was achieved, the eyes were protected by the anesthesia dept criteria I placed corneal right eye shield with serial lubrication. A time out was take for patient ID, antibiotics, equipment and position verification once all agreed the procedure began. Local anesthesia was given into the ZF and intraoral mucobuccal fold area right side. I used Marcaine with a vasoconstrictor ( 1.8 ml per site. Once a surgical level of anesthesia was obtained and the local anesthesia was given time for the blo cks the surgery was started. I turned my attention to the fractured ZMOC An incision of the Right Zygomatic frontal suture line was made with a 15 blade. The electrosurgical needle was now used to incise through the muscle and periosteum to expose the displaced fractured ZF site. The Z-F was impacted medically and inferior. I was able to reflect the periosteal tissue to free up the site. I was now able to slide a Melinda clamp behind the buttress of the right zygoma and with a lateral and superior force I was able to reduce the impacted ZMOC fracture. The fracture was not stable so to gain access to the maxillary buttress and rim which was impacted into the sinus. I was not able to gain access through the deep cheek laceration. I needed to evaluate the lateral sinus area via an intraoral approach. The electro surgery with a needle tip was used to cut the mucosa and periosteum and I was ow able to visualize the fracture. The tissue was reflected to expose the body of the zygoma and anterior sinus wall which was comminuted. The ZMOC was now reduced out of the sinus and this improved the alignment of the ZMOC. Many of the small sinus fragments were attached to the periosteum, I was able to reduce many of these small fragments but placing a plate access the many fragments was not indicated as reflection of the soft tissue would compromise healing. At this time the ZMOC was well positioned intoanatomic form at the Z-F, inferior rim and buttress areas. Now that the arch, ZF, rim and buttress were well aligned I used a small fixation plate on the Z-F and buttress to secure direct fixation. All screws were very tight and the fracture was extremely stable. All fracture lines were well aligned and stable. The area of the orbital floor, sinus and ZF area were irrigated with NS. Layeredclosure with 6-0 [place] 6-0 nylon was used to obtain cosmetic closure. Repair of right complex cheek laceration I now turned my attention to the deep complex facial laceration from where piece of wood hit Damion in the face. COMPLEX REPAIR FACE (RIGHT CHEEK) 2.6-7.5 CM - CPT 73242 ([id number]) The repair of a 3 cm complex deep laceration involving the right cheek deep to the maxillary bone I reprepped the laceration and irrigated with an NS then turned my attention to the laceration. The laceration was approximately 3 cm long. It was very irregular and deep, the muscle was exposed as was the bone. I used an electrocautery instrument and cauterized any bleeders. The wound was irrigated and scrubbed. I inspected for Parotid duct, arterial, venous and nerve injury--these injuries were not noted. I then inspected the bone and determined that this wound communicated with the maxillary sinus with fractured anterior sinus wall plate fracture. The closure of the laceration was now started using 6-0 Vicryl suture to line up the deep muscles and periosteum and subQ tissues. The skin was closed with a 6-0 nylon suture. A very nice cosmetic closure of this irregular laceration was achieved. I now entered the mouth and completed the mucosal closure of the oral soft tissue in the vestibular incision. Prior to closure I was able to alight up the large fractured bone fragments. Steri Strips were placed. A pressure dressing was placed over the ZF area and complex cheep laceration Once the case was completed I inspected the sites to insure all bleeding was controlled. This was a complex closure of a 3 cm right cheek laceration COMPLEX REPAIR FACE (RIGHT CHEEK) 2.6-7.5 CM - CPT 11822 ([id number]) I removed corneal left eye shield--The eye was irrigated. Instrument and sponge count was correct. The patient was allowed to awake from the anesthesia. Once full awake the anesthesia tube was removed and the patient was taken to the recovery room with all vital sign stable. The patient tolerated the surgery very well. I will follow the patient in my office, Rx and instructions will be given upon discharge. I attest to the content of the Intraoperative Record and any orders documented therein. Any exceptions are noted below.
== END 2023-09-27 12:37 | disposition home or self-care (01) | DRG 141 ==
LOC: ED 15:50 → 3N 22:04 → SUATTDRO 22:04 → 3N 22:44